=== PATIENT | female | born 1940 | race Caucasian/White ===

== ENCOUNTER → 2020-09-15 | Outpatient (CLI) | payer OTHER ==
[~2020-09-15] MED LIST: GABA100 PO; TIOT18 INH
== END | disposition home or self-care (01) ==
LOC: LAB SRC 14:52 → LAB SHORT 14:52
DX: J35.8 Other chronic diseases of tonsils and adenoids (principal)
CPT/HCPCS: 87081

== ENCOUNTER → 2021-06-08 | Outpatient (CLI) | payer OTHER | END | disposition home or self-care (01) | LOC: LAB SHORT 08:15 | DX: D48.5 Neoplasm of uncertain behavior of skin (principal) | CPT/HCPCS: 88305 ==

== ENCOUNTER 2022-02-03 11:56 | Emergency (ER) | payer MEDICARE ==
[~2022-02-03] VITALS: Ht 170.2 cm; Wt 65.8 kg
[2022-02-03 12:49] LABS: BASOPHILS ABSOLUTE AUTO 0.01 K/mm3 (0.00-0.23); BASOPHILS PERCENT AUTO 0 % (0-2); EOSINOPHILS PERCENT AUTO 0 % (0-6); Hematocrit 42.3 % (33.0-51.0); Hemoglobin 15.7 g/dL (11.5-16.0); IMMATURE GRAN ABSOLUTE AUTO 0.02 K/mm3 (0.00-0.10); IMMATURE GRAN PERCENT AUTO 1 % (0-1); LYMPHOCYTES ABSOLUTE AUTO 0.92 K/mm3 (0.84-5.20); LYMPHOCYTES PERCENT AUTO 21 % (21-46); MONOCYTES PERCENT AUTO 7 % (4-13); Mean Corpuscular HGB 32.7 pg (26.0-34.0); Mean Corpuscular HGB Conc 37.1 g/dL (31.5-36.5); Mean Corpuscular Volume 88 fL (80-100); NEUTROPHILS ABSOLUTE AUTO 3.16 K/mm3 (1.96-9.15); NEUTROPHILS PERCENT AUTO 72 % (41-73); Platelet Count 136 K/mm3 (150-400); RDW Coefficient Variation 12.9 % (11.7-14.2); RDW Standard Deviation 42.4 fL (35.1-46.3); White Blood Cell Count 4.41 K/mm3 (4.00-11.30)
[2022-02-03 13:05] LABS: Albumin, Blood 3.5 g/dL (3.4-5.0); Bilirubin, Total 0.8 mg/dL (0.1-1.0); Bun/Creatinine Ratio 19.4 (12.0-20.0); Creatinine, Blood 0.72 mg/dL (0.40-1.00); Globulin, Blood 3.5 g/dL (2.2-4.0); Potassium, Blood 3.4 mmol/L (3.5-5.5)
[2022-02-03] MEDS ORDERED: PRED20 PO (15:53)
== END 2022-02-03 16:06 | disposition home or self-care (01) ==
LOC: ER 11:56
PROVIDERS: Physician Assistant
DX: R06.02 Shortness of breath (principal); J43.9 Emphysema, unspecified; J84.10 Pulmonary fibrosis, unspecified; Z28.310 Unvaccinated for COVID-19; Z79.899 Other long term (current) drug therapy; Z79.52 Long term (current) use of systemic steroids
CPT/HCPCS: 36415; 71046; 80053; 83880; 84484; 85025; 93005; 93010; 94640; 94664; J2930

== ENCOUNTER 2023-08-02 08:19 | Day surgery (SDC) | payer OTHER ==
[~2023-08-02] VITALS: Ht 172.7 cm; Wt 76.2 kg
[2023-08-02] VITALS (22 sets, daily range): BP systolic 103–156; BP diastolic 51–102
[~2023-08-02 08:19] MED LIST changes: +PRED20 PO
[2023-08-02] MEDS ORDERED: CALCIUM 600 +1 EA11 PO (08:34)
[2023-08-02] MEDS ORDERED: C COMPLEX1000 M1 PO (08:34)
[2023-08-02] MEDS ORDERED: FURO40 PO (08:37)
[2023-08-02] MEDS ORDERED: AIRDUO RESPICL1 EAC1 INH (08:37)
[2023-08-02] MEDS ORDERED: LIDO5TO TOP (08:38)
[2023-08-02] MEDS ORDERED: EUTHYROX50 MCG PO (08:38)
[2023-08-02] MEDS ORDERED: MAGNESIUM OXID500 MG PO (08:38)
[2023-08-02] MEDS ORDERED: POTCHL20ER PO (08:39)
--- NOTE | 2023-08-02 10:00 | NUR ---
PATIENT TOLERATED JOHN PROCEDURE WELL ON LIGHT SEDATION. VSS
--- NOTE | 2023-08-02 10:50 | NUR ---
PATIENT SITTING UPRIGHT IN BED. DISCHARGE INTSTRUCTIONS REVIEWED WITH PATIENT. PATIENT TOELRATING PO INTAKE WELL. VSS ON RA.
--- NOTE | 2023-08-02 11:05 | NUR ---
PATIENT DISCHARGED HOME AT THIS TIME. ALL PATIENT BELONGINGS AND PAPERWORK LEFT WITH PATIENT. PIV REMVOED WITHOUT DIFFICULTY, CATHETER INTACT.
== END 2023-08-02 23:18 | disposition home or self-care (01) ==
LOC: MHTC 08:19
DX: I34.0 Nonrheumatic mitral (valve) insufficiency (principal); I50.30 Unspecified diastolic (congestive) heart failure; I34.1 Nonrheumatic mitral (valve) prolapse; I51.7 Cardiomegaly
CPT/HCPCS: 93312; 93325; 99152; 99153; A9270; J2250; J3010; J7030

== ENCOUNTER 2024-03-17 09:15 | Day surgery (SDC) | payer OTHER ==
[~2024-03-17] VITALS: Ht 167.6 cm; Wt 73.0 kg
[~2024-03-17 09:15] MED LIST changes: +ACET325 PO; +AIRDUO RESPICL1 EAC1 INH; +C COMPLEX1000 M1 PO; +CALCIUM 500 MG1 EAC2 PO; +CALCIUM 600 +1 EA11 PO; +EUTHYROX50 MCG PO; +FURO40 PO; +LIDO5TO TOP; +Lactated Ringer's 1,000 ML IV ONE; +MAGNESIUM OXID500 MG PO; +POTCHL20ER PO; +TRELEGY ELLIPT1 EAC1 INH; +Vitamin D1000 UNI1 PO
[2024-03-17] MEDS ORDERED: NS 50 ML IV ONE (09:23)
[2024-03-17] MEDS ORDERED: CeFAZolin Sodium 2,000 MG VIAL ONE (09:23)
[2024-03-17] MEDS ORDERED: Lactated Ringer's 1,000 ML IV ONE (09:35)
[2024-03-17] MEDS ORDERED: ASPI81CH (09:36)
[2024-03-17] MEDS ORDERED: BUME1 (09:38)
--- NOTE | 2024-03-17 10:07 | NUR ---
03/17/24 Britni Mckeon INJECTED 2% LIDOCAINE WITH EPI 1:100,000 IN LEFT WRIST AT 0950, AND ENDED AT 0952. TOTAL INJECTED WAS 10ML. PATIENT TOLERATED WELL.
[2024-03-17 10:40] VITALS: BP 131/62
== END 2024-03-17 11:21 | disposition home or self-care (01) ==
LOC: ORSCSDS 09:15
PROVIDERS: Orthopaedic Surgery
PROC: 0JBH0ZX Excision of Left Lower Arm Subcutaneous Tissue and Fascia, Open Approach, Diagnostic (ICD-10-PCS; principal; 2024-03-17 11:15)
DX: D17.22 Benign lipomatous neoplasm of skin and subcutaneous tissue of left arm (principal); I10 Essential (primary) hypertension; J44.9 Chronic obstructive pulmonary disease, unspecified; E03.9 Hypothyroidism, unspecified; Z99.81 Dependence on supplemental oxygen; Z79.899 Other long term (current) drug therapy; Z79.82 Long term (current) use of aspirin
CPT/HCPCS: 88304; J0690; J7120

== ENCOUNTER 2024-05-08 10:11 | Day surgery (SDC) | payer OTHER ==
[~2024-05-08] VITALS: Ht 167.6 cm; Wt 73.0 kg
[~2024-05-08 10:11] MED LIST changes: +ASPI81CH; +BUME1; +Balanced Salt Epinephrine Irrigation Solution 500 mL IR SCH; -Lactated Ringer's 1,000 ML IV ONE; +Lidocaine HCl/Pf 1% 5 ML VIAL XX SCH; +MAG GLYCINATE100 MG PO; +Moxifloxacin HCL 0.5 MG/0.1 ML 0.4MLSYR RIGHTEYE SCH; +PHENYLEPHRINE\\TROPICAMIDE\\TETRACAINE OPHTHALMIC DILATING SOLN RIGHTEYE PRN; +Povidone-Iodine 450 DROP/30 ML Solution RIGHTEYE SCH; +SALONPAS 3.1%-1 EAC1 TP; +TRELEGY ELLIPT1 EACH INH; +Triamcinolone Inj Susp 40 MG / ML 1ML Vial INJ SCH
[2024-05-08] MEDS ORDERED: ALBU90OI INH (10:33)
[2024-05-08] MEDS ORDERED: Midazolam HCl 1MG / ML 2ML Vial ONE (11:10)
[2024-05-08] MEDS ORDERED: Tetracaine HCl 0.5% Opth Soln 15 ml XX ONE (11:12)
[2024-05-08 11:43] VITALS: BP 112/65
== END 2024-05-08 12:06 | disposition home or self-care (01) ==
LOC: ORSCSDS 10:11
PROVIDERS: Ophthalmology
PROC: 08RJ3JZ Replacement of Right Lens with Synthetic Substitute, Percutaneous Approach (ICD-10-PCS; principal; 2024-05-08 11:30)
DX: H25.811 Combined forms of age-related cataract, right eye (principal); Z96.1 Presence of intraocular lens; J44.9 Chronic obstructive pulmonary disease, unspecified; Z99.81 Dependence on supplemental oxygen; Z79.82 Long term (current) use of aspirin; Z79.899 Other long term (current) drug therapy
CPT/HCPCS: J2250; V2632